=== PATIENT | female | born 2000 | race African-American/Black ===

== ENCOUNTER 2020-06-27 13:34 | Emergency (ER) | payer OTHER ==
--- NOTE | 2020-06-27 13:51 | ED Physician Documentation ---
PD HPI CHEST PAIN - Stated complaint Stated Complaint: ABD PX, CHEST PX - Chief complaint Chief Complaint: Cardiac - History obtained from History obtained from: Patient - Additional information Additional information: Healthy 19-year-old woman who does not smoke, does not take control, no possibility of . She has had waxing and waning but generally constant left upper chest pain for the last week with some radiation to the back. It was especially noticeable last night while laying supine in bed. She feels mildly short of breath with exertion. She denies cough or hemoptysis. No leg swelling or calf pain. No history of DVT or PE. She is not very knowledgeable of her family history but says her mom is currently in the hospital for pneumonia and something to do with her heart. Review of Systems Ten Systems: 10 systems reviewed and negative Constitutional: denies: Fever, Chills, Fatigue Cardiac: denies: Palpitations, Pedal edema, Calf pain Respiratory: denies: Cough, Hemoptysis, Wheezing GI: denies: Abdominal Pain PD PAST MEDICAL HISTORY - Present Medications Home Medications: Ambulatory Orders Medication Instructions Recorded Confirmed No Known Home Medications 06/27/20 06/27/20 - Allergies Allergies/Adverse Reactions: Allergies Allergy/AdvReac Type Severity Reaction Status Date / Time No Known Drug Allergies Allergy Verified 06/27/20 13:43 PD ED PE NORMAL - Vitals Vital signs reviewed: Yes - General General: Alert and oriented X 3, No acute distress - HEENT HEENT: PERRL, EOMI - Neck Neck: Supple, no meningeal sign, No bony TTP - Cardiac Cardiac: RRR, No murmur - Respiratory Respiratory: No respiratory distress, Clear bilaterally - Abdomen Abdomen: Normal bowel sounds, Soft, Non tender - Back Back: No CVA TTP, No spinal TTP - Derm Derm: Normal color, Warm and dry - Extremities Extremities: No edema, No calf tenderness / cord - Neuro Neuro: Alert and oriented X 3, Normal speech Results - Vitals Vitals: Vital Signs - 24 hr 06/27/20 06/27/20 13:38 13:50 Temperature 36.5 C 36.5 C Heart Rate 74 74 Respiratory 15 16 Rate Blood Pressure 119/64 119/64 O2 Saturation 100 100 Oxygen O2 Source Room air - EKG (time done) 1352 Rate: Rate (enter#) (67) Rhythm: NSR [place]: Normal Intervals: Normal [place] QRS: Normal Ischemia: Non specific changes Computer interpretation: Agree with computer - Labs Labs: Laboratory Tests 06/27/20 06/27/20 06/27/20 14:03 14:35 14:35 WBC 4.7 L RBC 3.95 L Hgb 9.2 L Hct 31.0 L MCV 78.5 L MCH 23.3 L MCHC 29.7 L RDW 16.2 H Plt Count 189 MPV 9.1 Neut # (Auto) 3.0 Lymph # (Auto) 1.5 [place] # (Auto) 0.2 Eos # (Auto) 0.0 Baso # (Auto) 0.0 Absolute Nucleated RBC 0.00 Nucleated RBC % 0.0 Sodium 136 Potassium 3.7 Chloride 103 Carbon Dioxide 22 Anion Gap 11.0 BUN 9 Creatinine 0.6 Estimated GFR (MDRD) 154 Glucose 85 Calcium 9.1 Troponin I High Sens Urine Color YELLOW Urine Clarity CLEAR Urine pH 6.0 Ur Specific Gate >=1.030 H Urine Protein NEGATIVE Urine Glucose (UA) NEGATIVE Urine Ketones NEGATIVE Urine Occult Blood NEGATIVE Urine Nitrite NEGATIVE Urine Bilirubin NEGATIVE Urine Urobilinogen 0.2 (NORMAL) Ur Leukocyte Esterase NEGATIVE Ur Microscopic Review NOT INDICATED Urine Culture Comments NOT INDICATED Urine HCG, Qual NEGATIVE 06/27/20 14:35 WBC RBC Hgb Hct MCV MCH MCHC RDW Plt Count MPV Neut # (Auto) Lymph # (Auto) [place] # (Auto) Eos # (Auto) Baso # (Auto) Absolute Nucleated RBC Nucleated RBC % Sodium Potassium Chloride Carbon Dioxide Anion Gap BUN Creatinine Estimated GFR (MDRD) Glucose Calcium Troponin I High Sens < 2.3 L Urine Color Urine Clarity Urine pH Ur Specific Gate Urine Protein Urine Glucose (UA) Urine Ketones Urine Occult Blood Urine Nitrite Urine Bilirubin Urine Urobilinogen Ur Leukocyte Esterase Ur Microscopic Review Urine Culture Comments Urine HCG, Qual - Rads (name of study) 2 view chest x-ray Radiology: EMP read contemporaneously (neg) PD MEDICAL DECISION MAKING - ED course ED course: PERC negative and heart score 0-1 depending on family history. Departure - Departure Disposition: 01 Home, Self Care Clinical Impression: Atypical chest pain, Anemia Condition: Good Instructions: ED Chest Pain NonCardiac Comments: No evidence of active heart problems or other worrying causes of chest pain. You were found to be moderately anemic, follow-up with your doctor for this. Return for new or worsening symptoms.
[2020-06-27 14:06] LABS: BILIRUBIN,URINE NEGATIVE (NEGATIVE); GLUCOSE, URINE (UA) NEGATIVE (NEGATIVE); KETONES,URINE (UA) NEGATIVE (NEGATIVE); LEUKOCYTE ESTERASE, URINE NEGATIVE (NEGATIVE); NITRITE,URINE NEGATIVE (NEGATIVE); OCCULT BLOOD,URINE NEGATIVE (NEGATIVE); PROTEIN,URINE NEGATIVE (NEGATIVE); UROBILINOGEN,URINE 0.2 (NORMAL) E.U./dL (NORMAL)
[2020-06-27 14:08] LABS: CLARITY,URINE CLEAR (CLEAR); HCG UR QUAL NEGATIVE
[2020-06-27 14:49] LABS: BASOPHILS % (AUTO) 0.2 %; EOSINOPHILS % (AUTO) 0.2 %; HGB - HEMOGLOBIN 9.2 g/dL (12.0-16.0); LYMPHOCYTES # (AUTO) 1.5 10^3/uL (1.5-3.5); LYMPHOCYTES % (AUTO) 31.3 %; MEAN CORPUSCULAR HEMOGLOBIN 23.3 pg (27.0-31.0); MEAN CORPUSCULAR HGB CONC 29.7 g/dL (32.0-36.0); MEAN CORPUSCULAR VOLUME 78.5 fL (81.0-99.0); MEAN PLATELET VOLUME 9.1 fL (7.9-10.8); MONOCYTES # (AUTO) 0.2 10^3/uL (0.0-1.0); MONOCYTES % (AUTO) 4.5 %; NEUTROPHILS % (AUTO) 63.6 %; PLT - PLATELET COUNT 189 10^3/uL (130-450); RED BLOOD COUNT 3.95 10^6/uL (4.20-5.40); RED CELL DISTRIBUTION WIDTH 16.2 % (12.0-15.0); WHITE BLOOD COUNT 4.7 x10^3/uL (4.8-10.8)
--- NOTE | 2020-06-27 14:55 | XRAY Report ---
PROCEDURE: Chest 2 View X-Ray INDICATIONS: cp TECHNIQUE: 2 view(s) of the chest. COMPARISON: None. FINDINGS: Overlying EKG wires. Surgical changes and devices: None. Lungs and pleura: No pleural effusions or pneumothorax. Lungs are clear. Mediastinum: Mediastinal contours are normal. Heart size is normal. Bones and chest wall: No suspicious bony abnormalities. Soft tissues appear unremarkable. IMPRESSION: No evidence of an acute cardiopulmonary abnormality. Reviewed by: Jovani Ferreira DO on 06/27/2020 1:54 PM [facility] Approved by: Jovani Ferreira DO on 06/27/2020 1:54 PM [facility] Station ID: [id number]
[2020-06-27 15:00] LABS: CALCIUM 9.1 mg/dL (8.5-10.3); CREATININE 0.6 mg/dL (0.4-1.0)
[2020-06-27 15:40] VITALS: BP 108/55
== END 2020-06-27 15:43 | disposition home or self-care (01) ==
LOC: ED 13:34
DX: R07.89 Other chest pain (principal); D64.9 Anemia, unspecified
CPT/HCPCS: 36415; 80048; 81001; 81003; 81025; 84484; 85025; 87086; 93005; 99284